=== PATIENT | female | born 1950 | race Hispanic/Latino ===

== ENCOUNTER → 2018-07-19 | Outpatient (CLI) | payer MEDICARE, BC | END | disposition home or self-care (01) | LOC: SLR 11:00 | PROVIDERS: ATTEND Otolaryngology | DX: G47.33 Obstructive sleep apnea (adult) (pediatric) (principal); R40.0 Somnolence; R06.83 Snoring | CPT/HCPCS: 95810 ==

== ENCOUNTER 2019-02-20 07:23 | Inpatient (IN) | payer MEDICARE, BC ==
--- NOTE | 2019-02-16 08:51 | Anesthesia Consultation ---
Anesthesia Consult and Med Hx Date of service: 02/16/19 - Airway Anesthetic Teeth Evaluation: Good ROM Head & Neck: Adequate Mental/Hyoid Distance: Inadequate Mallampati Class: Class III Intubation Access Assessment: Possibly Difficult - Pulmonary Exam CTA: Yes - Cardiac Exam Cardiac Exam: RRR - Pre-Operative Health Status ASA Pre-Surgery Classification: ASA3 Proposed Anesthetic Plan: General - Pulmonary Hx Smoking: No Hx Respiratory Symptoms: No Hx Sleep Apnea: Yes (mild/positional per sleep study; compliant with CPAP) - Cardiovascular System Hx Hypertension: No Hx Heart Attack/AMI: No Hx Percutaneous Transluminal Coronary Angioplasty (PTCA): No Hx Heart Murmur: Yes (noted on cardiology notes) - Central Nervous System Hx Seizures: No CVA: No Hx Back Pain: Yes Hx Psychiatric Problems: Yes - Gastrointestinal Hx Gastroesophageal Reflux Disease: Yes - Endocrine Hx Renal Disease: No Hx Liver Disease: No Hx Insulin Dependent Diabetes: No Hx Non-Insulin Dependent Diabetes: No Hx Thyroid Disease: No - Hematic Hx Anemia: Yes (iron deficiency) - Other Systems Hx Alcohol Use: Yes (SOCIALLY) Hx Substance Use: No Hx Obesity: Yes (BMI 52) - Additional Comments Anesthesia Medical History Comments: No hx anesthetic complications. TTE shows EF 60%. ST normal.
[~2019-02-20 07:23] MED LIST: ANCEF/STERILE WATER 2 GM/20 ML 2 GM/20 ML SYRINGE IV NR; FLAGYL 500 MG/100 ML 500 MG/100 ML BAG IV NR; LOVENOX SUB-Q NR; TRANSDERM-SCOP TD SCH; VERSED IV NR
[2019-02-20] MEDS ORDERED: APRESOLINE IV PRN (07:30)
[2019-02-20] MEDS ORDERED: MORPHINE IV PRN (07:30)
[2019-02-20] MEDS ORDERED: LACTATED RINGERS 1,000 ML ONE (08:29)
[2019-02-20] MEDS ORDERED: SUBLIMAZE IV PRN (09:26)
--- NOTE | 2019-02-20 09:26 | Anesthesia Day of Surgery ---
Anesthesia Day of Surgery - Day of Surgery Patient Examined: Yes Patient H&P Reviewed: Yes Patient is NPO: Yes
[2019-02-20] MEDS: LACTATED RINGERS 1,000 ML IV SCH ×2 (09:40→21:13)
[2019-02-20] MEDS ORDERED: QUELICIN ONE (10:05)
[2019-02-20] MEDS ORDERED: XYLOCAINE MPF 2% ONE (10:05)
[2019-02-20] MEDS ORDERED: ZEMURON IV ONE (10:05)
[2019-02-20] MEDS ORDERED: XYLOCAINE 1% 20 mL ONE (10:06)
[2019-02-20] MEDS ORDERED: SUBLIMAZE ONE (10:06)
[2019-02-20] MEDS ORDERED: MARCAINE-EPI 0.5%-1:200,000 INFILTRATI ONE ×2 (10:06→10:56)
[2019-02-20] MEDS ORDERED: DIPRIVAN 10 MG/ML IV ONE (10:07)
[2019-02-20] MEDS ORDERED: XYLOCAINE 1% 20 mL INFILTRATI ONE (10:57)
[2019-02-20] MEDS ORDERED: NACL 0.9% IR ONE ×2 (10:57→12:23)
[2019-02-20] MEDS ORDERED: DILAUDID ONE (11:21)
[2019-02-20] MEDS ORDERED: BLOXIVERZ ONE (12:37)
[2019-02-20] MEDS ORDERED: ROBINUL ONE (12:37)
[2019-02-20] MEDS ORDERED: DECADRON ONE (12:37)
[2019-02-20] MEDS ORDERED: ZOFRAN ONE (12:37)
[2019-02-20] MEDS: DILAUDID IV PRN ×4 (13:10→19:55)
[2019-02-20] MEDS: ZOFRAN IV PRN ×2 (13:38→19:55)
--- NOTE | 2019-02-20 14:11 | Operative Report ---
PREOPERATIVE DIAGNOSES: Morbid obesity and gastroesophageal reflux. POSTOPERATIVE DIAGNOSES: Morbid obesity, gastroesophageal reflux with a very large paraesophageal hiatal hernia. PROCEDURE: Laparoscopic gastric bypass with paraesophageal hiatal hernia repair. SURGEON: Pedro Luis Small MD SKIP HOIST OPERATOR: Randy Spears. ANESTHESIA: General. OPERATIVE FINDINGS: The patient is a morbidly obese patient that presented for bariatric surgery and most notably the Oscar-en-Y gastric bypass. She also has some history of reflux disease and a preoperative EGD showed that she had a large paraesophageal hiatal hernia. OPERATIVE TECHNIQUE: After adequate timeout and prepped and draped in the usual fashion for a gastric bypass laparoscopically, the patient's skin was anesthetized using 0.5% lidocaine solution. Using a sharp skin knife, skin incision was made in the umbilicus and a Veress needle was placed and insufflation of CO2. After adequate insufflation of CO2 was accomplished, a 10 mm trocar was then placed inside the abdominal cavity. Several of the trocars were then placed also to access the intra-abdominal contents in preparation for performing the Oscar-en-Y gastric bypass. We identified the ligament of Treitz and ran this for approximately 50 cm where it was then transected. This created the biliopancreatic limb as well as the Oscar-en-Y limb. The Oscar-en-Y limb was then ran for approximately 150 cm. The biliopancreatic limb was anastomosed to this Oscar limb at this particular 150 cm allyn using a eoyb-do-[id number] technique by performing an enterotomy in both aspects of the bowel and then placed in a white load stapler in the creases of the bowel to perform a [id number] anastomosis. The enterotomy was closed also using white load stapler. Following this, the patient was then placed in reverse Trendelenburg and the liver was lifted up with liver retractor. I then will be noted the portion of the fundus of the stomach was almost incarcerated into the hiatus. We therefore spent approximately 30-35 minutes, removing the sac and pulling the stomach back down into the abdominal cavity. This was continued down until we could identify the GE junction and approximately 3 cm of the GE junction lie below the hiatus that left the hiatus wide open. We therefore used several U sutures to close the hiatus in preparation and preparing the hiatal hernia defect. After the hiatal hernia defect was closed, it was immediately apparent that there was a lot of fat still remaining on the stomach. This was taken off using a LigaSure coagulation device. The gastric pouch was then manufactured by going along the lesser curvature and make in a gentle retrogastric fashion and then stapled across the stomach to allow for approximately a 30 mL pouch. The stapler was then turned towards the left deonna in order to complete the stapling procedure. Then, the previously manufactured the Oscar-en-Y limb, a small bowel was then tacked up to the gastric pouch using a single suture of Ethibond suture. The enterotomy was made into the gastric pouch as well as to the side of the Oscar-en-Y limb small bowel and using a white load stapler, the anastomosis was accomplished in a [id number] fashion. We then provided adequate hemostasis. With adequate hemostasis was accomplished, we then began to close the defect of the ostomy using a running suture of #0 V-Loc absorbable. A second layer was also accomplished using the same suture. The patient was then taken out of the reverse Trendelenburg position and laid flat and the abdominal cavity was filled with water. We then clamped across the Oscar-en-Y limb of small bowel and I passed the scope from above blowing air through the esophagus and into this small pouch to test for any air leaks. There were none found and we therefore desufflated the bowel and after desufflating the bowel, we then suctioned out the CO2 and left some normal saline within the abdominal cavity to absorb the remaining CO2. The patient's fascial defect at the umbilicus was closed using interrupted simple suture of #1 PDS and the skin was closed using interrupted subdermal sutures of 4-0 Monocryl. Steri-Strips were applied to the wound. The patient tolerated the procedure well, was sent back to recovery room in satisfactory condition. JOB# [id number] EDUARDO/VINCE
--- NOTE | 2019-02-20 14:31 | Post Anesthesia Evaluation ---
- Post Anesthesia Evaluation Patient Participated: Yes Airway Patent: Yes Stable Respiratory Function: Yes Nausea/Vomiting: No Temp > 96.8F: Yes Pain Manageable: Yes Adequeate Hydration: Yes Anesthesia Complications: No
[2019-02-20] MEDS: REGLAN IV PRN (16:40)
[2019-02-21] MEDS: DILAUDID IV PRN ×3 (00:25→20:00)
[2019-02-21] MEDS: REGLAN IV PRN (00:25)
[2019-02-21] MEDS: MYLICON PO PRN ×3 (04:24→20:01)
[2019-02-21] MEDS: ZOFRAN IV PRN (04:26)
[2019-02-21 05:00] LABS: Bacteria,Urine 2+ /HPF (Negative); Bilirubin,Urine NEG (Negative); Blood,Urine NEG (Negative); Color,Urine Yellow (Yellow); Mucus,Urine FEW /HPF; Protein,Urine <15 mg/dL mg/dL (Negative); Urobilinogen,Urine < 2.0 mg/dL (<2.0)
[2019-02-21 05:02] LABS: WBC,Urine < 1.0 /HPF (0.0-6.0)
[2019-02-21] MEDS: NORCO PO PRN ×4 (07:53→23:54)
[2019-02-21] MEDS: LACTATED RINGERS 1,000 ML IV SCH ×2 (07:53→18:30)
[2019-02-21] MEDS: LOVENOX SUB-Q SCH (10:18)
--- NOTE | 2019-02-21 16:37 | Discharge Summary ---
Providers - Providers Date of Admission: 02/20/19 07:23 Date of discharge: 02/21/19 Attending physician: ABBIE ROSE Primary care physician: SABRINA AMBRIZ Hospitalization Condition: Good Disposition: DC-01 TO HOME OR SELFCARE Core Measure Documentation - Palliative Care Palliative Care/ Comfort Measures: Not Applicable - Core Measures Any of the following diagnoses?: none Exam - Constitutional Vitals: Temp Pulse Resp BP Pulse Ox 99.3 F 75 16 125/61 95 02/21/19 12:12 02/21/19 12:10 02/21/19 12:13 02/21/19 12:12 02/21/19 12:10 General appearance: Present: no acute distress, well-nourished - EENT Eyes: Present: PERRL, EOM intact ENT: hearing intact, clear oral mucosa, dentition normal - Neck Neck: Present: supple, normal ROM - Respiratory Respiratory: bilateral: CTA - Cardiovascular Rhythm: regular - Extremities Extremities: no ischemia, pulses intact, pulses symmetrical Peripheral Pulses: within normal limits - Abdominal General gastrointestinal: Present: soft, non-tender, normal bowel sounds Female genitourinary: Present: normal - Rectal Rectal Exam: deferred - Integumentary Integumentary: Present: clear, warm, dry - Musculoskeletal Musculoskeletal: strength equal bilaterally - Psychiatric Psychiatric: appropriate mood/affect Plan Activity: no restrictions Weight Bearing Status: Full Weight Bearing Diet: other Wound: keep clean and dry Follow up with: SABRINA AMBRIZ MD [Primary Care Provider] - 7 Days ABBIE ROSE MD [Staff Physician] - 14 Days
[2019-02-22] MEDS: DILAUDID IV PRN (03:11)
[2019-02-22] MEDS: LACTATED RINGERS 1,000 ML IV SCH (03:11)
[2019-02-22] MEDS: REGLAN IV PRN (03:11)
--- NOTE | 2019-02-22 08:32 | Progress Note ---
Assessment and Plan 69F MO s/p LRYGB, PEHR 02/20/19 #1 sp LRYGB, PEHR - bariatric CLD - ambulate - IS use, discussed - meds crushed - dc home Subjective Date of service: 02/22/19 Interval history: No acute events. Tolerating CLD. c/o some green phlegm. No fevers/pain. Objective - Exam Narrative Exam: Gen: AAO, NAD Heart: RRR Lungs: CTAB Abd: Mo, soft, NT, bandages c/d/i Ext: No LE edema - Constitutional Vitals: Vital Signs - 12hr 02/21/19 02/21/19 02/22/19 23:39 23:44 00:54 Temperature 98.5 F Pulse Rate 88 Respiratory 20 18 Rate Blood Pressure 117/71 O2 Sat by Pulse 92 92 Oximetry 02/22/19 02/22/19 03:11 04:13 Temperature 99.0 F Pulse Rate 84 Respiratory 18 20 Rate Blood Pressure 111/62 O2 Sat by Pulse 93 Oximetry Medications & Allergies - Medications Allergies/Adverse Reactions: Allergies adhesive tape Allergy (Verified 02/14/19 15:06) Welps, Rash meperidine [From Demerol] Allergy (Verified 02/14/19 15:06) Hallucination Lemon [facility] Soap Allergy (Uncoded 02/14/19 15:06) Hand Peeling Home Medications: Home Medications Medication Instructions Recorded Confirmed Last Taken Type Aspirin EC [Aspirin Enteric Coated 81 mg PO QDAY 02/14/19 02/14/19 02/13/19 History TAB] AtorvaSTATin [Lipitor] 20 mg PO QHS 02/14/19 02/14/19 02/13/19 History Cetirizine HCl [ZyrTEC] 10 mg PO DAILY 02/14/19 02/14/19 02/13/19 History Gabapentin [Neurontin] 100 mg PO TID PRN 02/14/19 02/14/19 02/13/19 History Ginkgo Biloba 1 tab PO DAILY 02/14/19 02/14/19 02/13/19 History Multivit-Min/Iron/Folic/Apy299 1 each PO DAILY 02/14/19 02/14/19 02/13/19 History [Hair, Skin and Nails Tablet] Omeprazole 40 mg PO BID 02/14/19 02/20/19 02/19/19 History Active Medications: Generic Name Dose Route Start Last Admin Trade Name Owenq PRN Reason Stop Dose Admin Acetaminophen/Hydrocodone Bitart 7.5 mg 02/20/19 07:30 02/21/19 23:54 Gilbert PO 7.5 mg Q4H PRN Administration Pain, Moderate (4-6) Enoxaparin Sodium 40 mg 02/21/19 10:00 02/21/19 10:18 Lovenox SUB-Q 40 mg QDAY REYNALDO Administration Hydralazine HCl 10 mg 02/20/19 07:30 02/20/19 13:10 Apresoline IV 10 mg Q6H PRN Administration SBP > 150 Hydromorphone HCl 0.5 mg 02/20/19 07:30 02/22/19 03:11 Dilaudid IV 0.5 mg Q3H PRN Administration Pain , Severe (7-10) Lactated Ringer's 1,000 mls @ 150 mls/hr 02/20/19 08:00 02/22/19 03:11 Lactated Ringers IV 150 mls/hr DIRECT REYNALDO Administration Metoclopramide HCl 10 mg 02/20/19 07:30 02/22/19 03:11 Reglan IV 10 mg Q6H PRN Administration Nausea And Vomiting Morphine Sulfate 2 mg 02/20/19 07:30 Morphine IV Q4H PRN Pain, Moderate (4-6) Ondansetron HCl 4 mg 02/20/19 07:30 02/21/19 04:26 Zofran IV 4 mg Q8H PRN Administration Nausea And Vomiting Scopolamine 1 each 02/20/19 06:00 02/20/19 09:25 Transderm-Scop TD 1 each Q3D REYNALDO Administration Simethicone 80 mg 02/20/19 07:30 02/21/19 20:01 Mylicon PO 80 mg Q6H PRN Administration Gas pain
[2019-02-22 08:36] VITALS: BP 111/56
[2019-02-22] MEDS: LOVENOX SUB-Q SCH (09:44)
[2019-02-22] MEDS: NORCO PO PRN (10:31)
== END 2019-02-22 11:50 | disposition home or self-care (01) | DRG 327 ==
LOC: 3A 07:23 → 3B 13:22
PROVIDERS: ADMIT Specialist; ATTEND Specialist
PROC: 0BQT4ZZ Repair Diaphragm, Percutaneous Endoscopic Approach (ICD-10-PCS; principal; 2019-02-20)
PROC: 0D1 Gastrointestinal System, Bypass (ICD-10-PCS; 2019-02-20)
DX: K44.9 Diaphragmatic hernia without obstruction or gangrene (principal); Z68.43 Body mass index [BMI] 50.0-59.9, adult; E66.01 Morbid (severe) obesity due to excess calories; K21.9 Gastro-esophageal reflux disease without esophagitis; F34.1 Dysthymic disorder; E03.9 Hypothyroidism, unspecified
CPT/HCPCS: 81001; 94760; G0378; A4217; J0330; J0360; J0690; J1100; J1170; J1650; J2405; J2704; J2710; J2765; J3010; J7120